=== PATIENT | female | born 1990 | race American Indian/Alaskan Native ===

== ENCOUNTER 2017-12-31 17:56 | Emergency (ER) | payer SELFPAY ==
[2017-12-31] MEDS ORDERED: NACL 0.9% 1000 ML 1,000 ML IV ONE (18:08)
[2017-12-31 18:56] LABS: Hemoglobin 13.9 gm/dl (10.1-14.3); Mean Corpuscular HGB Conc 33 % (30-34); Mean Corpuscular Volume 72 fl (79-97); Platelet Count 186 K/mm3 (140-440); Red Blood Count 5.84 M/mm3 (3.65-5.03); Red Cell Distribution Width 16.7 % (13.2-15.2)
[2017-12-31 18:59] LABS: Mean Corpuscular Hemoglobin 24 pg (28-32)
[2017-12-31 19:15] LABS: Alanine Aminotransferase 25 units/L (7-56); Albumin 3.9 g/dL (3.9-5); BUN/Creatinine Ratio 9; Blood Urea Nitrogen 9 mg/dL (7-17); Calcium 9.5 mg/dL (8.4-10.2); Hemolysis Index 10; Lipase 31 units/L (13-60)
[2017-12-31 19:41] LABS: Bilirubin,Urine NEG (Negative); Blood,Urine LG (Negative); Color,Urine Yellow (Yellow); Mucus,Urine 1+ /HPF; Urobilinogen,Urine < 2.0 mg/dL (<2.0)
[2017-12-31 19:43] LABS: RBC,Urine > 182.0 /HPF (0.0-6.0)
[2017-12-31 20:03] LABS: Basophils % (Manual) 0 % (0.0-1.8); Eosinophils % (Manual) 0 % (0.0-4.3); Platelet Estimate Consistent w Auto; RBC Morphology Normal; Total Cells Counted 100
[2018-01-01 00:40] VITALS: BP 166/97
[2018-01-01] MEDS ORDERED: NORCO 5/325 PO ONE (02:51)
[2018-01-01] MEDS ORDERED: ZOFRAN ODT PO ONE (02:51)
[2018-01-01] MEDS ORDERED: K-DUR PO ONE ×2 (02:52→05:12)
[2018-01-01] MEDS ORDERED: PEPCID PO ONE (02:52)
--- NOTE | 2018-01-01 03:40 | Emergency Department Report ---
ED Abdominal Pain HPI - General Chief Complaint: Abdominal Pain Stated Complaint: VOMITING/ABD PAIN Time Seen by Provider: 01/01/18 02:21 Source: patient Mode of arrival: Ambulatory Limitations: No Limitations - History of Present Illness Initial Comments: 27-year-old female with a past medical history asthma, hypertension and obesity presents to the hospital complaining of upper abdominal pain since yesterday with nausea, vomiting, and diarrhea. Nausea vomiting is more pronounced in the diarrhea. Vomitus was initially yellow but now it is green. Patient complains of vaginal bleeding one off for the last year but denies dysuria or difficulty urinating. He describes aching, constant, worse with palpation. She denies hematemesis, hematochezia, melena, or fever. Patient has had 2 similar episodes in the past. In November she was diagnosed with H. pylori at [facility] and completed to 3 weeks treatment. Severity scale (0 -10): 8 - Related Data Allergies Allergy/AdvReac Type Severity Reaction Status Date / Time No Known Allergies Allergy Unverified 12/31/17 18:04 ED Review of Systems ROS: Stated complaint: VOMITING/ABD PAIN Other details as noted in HPI Comment: All other systems reviewed and negative ED Past Medical Hx - Past Medical History Previous Medical History?: Yes Hx Hypertension: Yes Hx Asthma: Yes - Surgical History Past Surgical History?: Yes Additional Surgical History: tonsillectomy - Social History Smoking Status: Never Smoker Substance Use Type: None ED Physical Exam - General Limitations: No Limitations - Other Other exam information: General: No limitations, patient is alert in no acute distress Head exam: Atraumatic, normocephalic Eyes exam: Normal appearance, nonicteric sclera ENT: Moist mucous membrane, normal oropharynx Neck exam: Normal inspection, full range of motion, no meningismus nontender Respiratory exam: Clear to auscultation bilateral, no wheezes, rales, crackles Cardiovascular: Normal rate and rhythm, normal heart sounds Abdomen: Soft, nondistended, right upper quadrant and epigastric tenderness, with normal bowel sounds, no rebound, or guarding Extremity: Full range of motion normal inspection no deformity, no calf tenderness or edema Back: Normal Inspection, full range of motion, no tenderness Neurologic: Alert, oriented x3, cranial nerves intact, no motor or sensory deficit Psychiatric: normal affect, normal mood Skin: Warm, dry, intact ED Course Vital Signs 12/31/17 01/01/18 18:04 00:38 Temperature 98.7 F 99.4 F Pulse Rate 87 68 Respiratory 17 18 Rate Blood Pressure 165/101 166/97 O2 Sat by Pulse 96 100 Oximetry ED Medical Decision Making - Lab Data Result diagrams: 12/31/17 18:28 12/31/17 18:28 Lab Results 12/31/17 12/31/17 12/31/17 Range/Units 18:28 18:28 18:28 WBC 10.0 (4.5-11.0) K/mm3 RBC 5.84 H (3.65-5.03) M/mm3 Hgb 13.9 (10.1-14.3) gm/dl Hct 42.0 (30.3-42.9) % MCV 72 L (79-97) fl MCH 24 L (28-32) pg MCHC 33 (30-34) % RDW 16.7 H (13.2-15.2) % Plt Count 186 (140-440) K/mm3 Baso % (Auto) Aircraft Servicer Add Manual Diff Complete Total Counted 100 Seg Neuts % (Manual) 74.0 H (40.0-70.0) % Band Neutrophils % 0 % Lymphocytes % (Manual) 20.0 (13.4-35.0) % Reactive Lymphs % (Man) 0 % Monocytes % (Manual) 6.0 (0.0-7.3) % Eosinophils % (Manual) 0 (0.0-4.3) % Basophils % (Manual) 0 (0.0-1.8) % Metamyelocytes % 0 % Myelocytes % 0 % Promyelocytes % 0 % Blast Cells % 0 % Nucleated RBC % Not Reportable Seg Neutrophils # Man 7.4 (1.8-7.7) K/mm3 Band Neutrophils # 0.0 K/mm3 Lymphocytes # (Manual) 2.0 (1.2-5.4) K/mm3 Abs React Lymphs (Man) 0.0 K/mm3 Monocytes # (Manual) 0.6 (0.0-0.8) K/mm3 Eosinophils # (Manual) 0.0 (0.0-0.4) K/mm3 Basophils # (Manual) 0.0 (0.0-0.1) K/mm3 Metamyelocytes # 0.0 K/mm3 Myelocytes # 0.0 K/mm3 Promyelocytes # 0.0 K/mm3 Blast Cells # 0.0 K/mm3 WBC Morphology Not Reportable Hypersegmented Neuts Not Reportable Hyposegmented Neuts Not Reportable Hypogranular Neuts Not Reportable Smudge Cells Not Reportable Toxic Granulation Not Reportable Toxic Vacuolation Not Reportable Dohle Bodies Not Reportable Pelger-Huet Anomaly Not Reportable Misty Rods Not Reportable Platelet Estimate Consistent w auto Clumped Platelets Not Reportable Plt Clumps, EDTA Not Reportable Large Platelets Not Reportable Giant Platelets Not Reportable Platelet Satelliting Not Reportable Plt Morphology Comment Not Reportable RBC Morphology Normal Dimorphic RBCs Not Reportable Polychromasia Not Reportable Hypochromasia Not Reportable Poikilocytosis Not Reportable Anisocytosis Not Reportable Microcytosis Not Reportable Macrocytosis Not Reportable Spherocytes Not Reportable Pappenheimer Bodies Not Reportable Sickle Cells Not Reportable Target Cells Not Reportable Tear Drop Cells Not Reportable Ovalocytes Not Reportable Helmet Cells Not Reportable [place] Bodies Not Reportable [place] Rings Not Reportable [place] Cells Not Reportable Bite Cells Not Reportable Crenated Cell Not Reportable Elliptocytes Not Reportable Acanthocytes (Spur) Not Reportable Rouleaux Not Reportable Hemoglobin C Crystals Not Reportable Schistocytes Not Reportable Malaria parasites Not Reportable Jose Bodies Not Reportable Hem Pathologist Commnt No Sodium 135 L (137-145) mmol/L Potassium 3.4 L (3.6-5.0) mmol/L Chloride 97.3 L (98-107) mmol/L Carbon Dioxide 25 (22-30) mmol/L Anion Gap 16 mmol/L BUN 9 (7-17) mg/dL Creatinine 1.0 (0.7-1.2) mg/dL Estimated GFR > 60 ml/min BUN/Creatinine Ratio 9 % Glucose 110 H (65-100) mg/dL Calcium 9.5 (8.4-10.2) mg/dL Total Bilirubin 0.50 (0.1-1.2) mg/dL AST 25 (5-40) units/L ALT 25 (7-56) units/L Alkaline Phosphatase 48 (35-129) units/L Total Protein 7.1 (6.3-8.2) g/dL Albumin 3.9 (3.9-5) g/dL Albumin/Globulin Ratio 1.2 % Lipase 31 (13-60) units/L HCG, Qual Negative (Negative) Urine Color (Yellow) Urine Turbidity (Clear) Urine pH (5.0-7.0) Ur Specific [place] (1.003-1.030) Urine Protein (Negative) mg/dL Urine Glucose (UA) (Negative) mg/dL Urine Ketones (Negative) mg/dL Urine Blood (Negative) Urine Nitrite (Negative) Urine Bilirubin (Negative) Urine Urobilinogen (<2.0) mg/dL Ur Leukocyte Esterase (Negative) Urine WBC (Auto) (0.0-6.0) /HPF Urine RBC (Auto) (0.0-6.0) /HPF U Epithel Cells (Auto) (0-13.0) /HPF Urine Mucus /HPF 12/31/17 Range/Units Unknown WBC (4.5-11.0) K/mm3 RBC (3.65-5.03) M/mm3 Hgb (10.1-14.3) gm/dl Hct (30.3-42.9) % MCV (79-97) fl MCH (28-32) pg MCHC (30-34) % RDW (13.2-15.2) % Plt Count (140-440) K/mm3 Baso % (Auto) Add Manual Diff Total Counted Seg Neuts % (Manual) (40.0-70.0) % Band Neutrophils % % Lymphocytes % (Manual) (13.4-35.0) % Reactive Lymphs % (Man) % Monocytes % (Manual) (0.0-7.3) % Eosinophils % (Manual) (0.0-4.3) % Basophils % (Manual) (0.0-1.8) % Metamyelocytes % % Myelocytes % % Promyelocytes % % Blast Cells % % Nucleated RBC % Seg Neutrophils # Man (1.8-7.7) K/mm3 Band Neutrophils # K/mm3 Lymphocytes # (Manual) (1.2-5.4) K/mm3 Abs React Lymphs (Man) K/mm3 Monocytes # (Manual) (0.0-0.8) K/mm3 Eosinophils # (Manual) (0.0-0.4) K/mm3 Basophils # (Manual) (0.0-0.1) K/mm3 Metamyelocytes # K/mm3 Myelocytes # K/mm3 Promyelocytes # K/mm3 Blast Cells # K/mm3 WBC Morphology Hypersegmented Neuts Hyposegmented Neuts Hypogranular Neuts Smudge Cells Toxic Granulation Toxic Vacuolation Dohle Bodies Pelger-Huet Anomaly Misty Rods Platelet Estimate Clumped Platelets Plt Clumps, EDTA Large Platelets Giant Platelets Platelet Satelliting Plt Morphology Comment RBC Morphology Dimorphic RBCs Polychromasia Hypochromasia Poikilocytosis Anisocytosis Microcytosis Macrocytosis Spherocytes Pappenheimer Bodies Sickle Cells Target Cells Tear Drop Cells Ovalocytes Helmet Cells Gabriel-[place] Bodies [place] Rings [place] Cells Bite Cells Crenated Cell Elliptocytes Acanthocytes (Spur) Rouleaux Hemoglobin C Crystals Schistocytes Malaria parasites Jose Bodies Hem Pathologist Commnt Sodium (137-145) mmol/L Potassium (3.6-5.0) mmol/L Chloride (98-107) mmol/L Carbon Dioxide (22-30) mmol/L Anion Gap mmol/L BUN (7-17) mg/dL Creatinine (0.7-1.2) mg/dL Estimated GFR ml/min BUN/Creatinine Ratio % Glucose (65-100) mg/dL Calcium (8.4-10.2) mg/dL Total Bilirubin (0.1-1.2) mg/dL AST (5-40) units/L ALT (7-56) units/L Alkaline Phosphatase (35-129) units/L Total Protein (6.3-8.2) g/dL Albumin (3.9-5) g/dL Albumin/Globulin Ratio % Lipase (13-60) units/L HCG, Qual (Negative) Urine Color Yellow (Yellow) Urine Turbidity Hazy (Clear) Urine pH 5.0 (5.0-7.0) Ur Specific [place] 1.027 (1.003-1.030) Urine Protein 30 mg/dl (Negative) mg/dL Urine Glucose (UA) Neg (Negative) mg/dL Urine Ketones Neg (Negative) mg/dL Urine Blood Lg (Negative) Urine Nitrite Neg (Negative) Urine Bilirubin Neg (Negative) Urine Urobilinogen < 2.0 (<2.0) mg/dL Ur Leukocyte Esterase Neg (Negative) Urine WBC (Auto) 4.0 (0.0-6.0) /HPF Urine RBC (Auto) > 182.0 (0.0-6.0) /HPF U Epithel Cells (Auto) 3.0 (0-13.0) /HPF Urine Mucus 1+ /HPF - Medical Decision Making Abdominal pain Ultrasound performed Patient treated with [place], Zofran, and Pepcid Hypokalemia Mild Treated with by mouth potassium Chronic hypertension - Differential Diagnosis PUD, H. pylori, gastritis, biliary colic Critical Care Time: No Critical care attestation.: If time is entered above; I have spent that time in minutes in the direct care of this critically ill patient, excluding procedure time. ED Disposition Condition: Stable Referrals: PRIMARY CARE, [Primary Care Provider] - 3-5 Days
[2018-01-01] MEDS ORDERED: PEPCID ONE (05:11)
[2018-01-01] MEDS ORDERED: NACL 0.9% 1000 ML 1,000 ML ONE (05:11)
[2018-01-01] MEDS ORDERED: ZOFRAN ODT ONE (05:12)
[2018-01-01] MEDS ORDERED: NORCO 5/325 ONE (05:13)
--- NOTE | 2018-01-01 08:34 | Ultrasound Report ---
FINAL REPORT EXAM: US ABDOMEN COMPLETE HISTORY: ruq pain, nv TECHNIQUE: Routine imaging was obtained of the upper abdomen. FINDINGS: The gallbladder is normal size and reveals dependent sludge and stones. There are no secondary signs of acute cholecystitis. The common bile duct is normal caliber 1.6 mm. The liver is suboptimally seen because of bowel gas. The abdominal aorta proximally measures 1.4 cm in diameter which is normal. The kidneys normal size and show no evidence of hydronephrosis. The right kidney measures 10.1 cm pole to pole with the left measuring 11.1 cm from pole to pole. The spleen appears mildly enlarged measuring 13.5 cm from pole to pole. The pancreas is not well seen because of bowel gas. Free fluid is not identified. IMPRESSION: Dependent sludge/stones in the gallbladder. No secondary signs of acute cholecystitis. Suboptimal visualization of the liver because of bowel gas. Normal biliary tree. No evidence of hydronephrosis.
== END 2018-01-01 03:40 | disposition home or self-care (01) ==
LOC: ED 17:56
DX: R10.10 Upper abdominal pain, unspecified (principal); R11.2 Nausea with vomiting, unspecified; R19.7 Diarrhea, unspecified; I10 Essential (primary) hypertension; J45.909 Unspecified asthma, uncomplicated; Z90.89 Acquired absence of other organs
CPT/HCPCS: 36415; 76700; 80053; 81001; 83690; 84703; 85007; 85025; 99284; J7030; Q0162

== ENCOUNTER 2019-05-15 10:02 | Emergency (ER) | payer SELFPAY ==
[2019-05-15 10:13] VITALS: BP 158/103
--- NOTE | 2019-05-15 10:29 | Emergency Department Report ---
Chief Complaint: Medical Clearance Stated Complaint: LIGHTHEADED/DIZZINESS/VOMITING Time Seen by Provider: 05/15/19 10:16 - HPI History of Present Illness: This is a 28-year-old female nontoxic, well nourished in appearance, no acute signs of distress presents to the ED for a test. Patient stated had a positive test 3. Patient stated she needs a work excuse as well as a confirmation of . She otherwise denies any symptoms. She denies any fever, chills, nausea, vomiting, chest pain, short of breath, abdominal pain, pelvic pain, vaginal bleeding, urinary symptoms or any back pains. Patient denies any allergies significant past medical history. - Exam Vital Signs: Vital Signs 05/15/19 10:12 Temperature 97.5 F L Pulse Rate 69 Respiratory 19 Rate Blood Pressure 158/103 O2 Sat by Pulse 100 Oximetry Physical Exam: no pelvic pain. no abdominal pain. no vaginal bleeding. no urinary symptoms. denies any pains or symptoms. MSE screening note: Focused history and physical exam performed. Due to findings the following was ordered: ED Medical Decision Making - Medical Decision Making This is a 28-year-old male that presents with nonmedical emergency. Patient is stable and was examined by me. Patient is asymptomatic and denies any symptoms. I will refer the patient [facility] and OBGYN/PCP. At time of discharge, the patient does not seem toxic or ill in appearance. No acute signs of distress noted. Patient agrees to discharge treatment plan of care. No further questions noted by the patient. ED Disposition for MSE Clinical Impression: Encounter for test Qualifiers: test result: result unknown Qualified Code(s): Z32.00 - Encounter for test, result unknown Disposition: Z-07 MED SCREENING EXAM-LEFT Is pt being admited?: No Does the pt Need Aspirin: No Condition: Stable Additional Instructions: Follow-up with the referrals that you received today during your emergency visit today in 3-5 days or if symptoms worsen and continue return to emergency room as soon as possible. Referrals: PRIMARY CARE, [Referring] - 3-5 Days YUDELKA RAMOS MD [Staff Physician] - 3-5 Days NI NUNEZ MD [Staff Physician] - 3-5 Days [facility] [Provider Group] - 3-5 Days
== END 2019-05-15 11:02 | disposition left against medical advice (07) ==
LOC: ED 10:02
DX: Z32.00 Encounter for pregnancy test, result unknown (principal)
CPT/HCPCS: 99281

== ENCOUNTER 2019-05-15 12:42 | Outpatient (CLI) | payer OTHER | END 2019-05-15 12:43 | disposition home or self-care (01) | LOC: LAB 12:42 | PROVIDERS: ATTEND Internal Medicine | DX: Z32.02 Encounter for pregnancy test, result negative (principal) | CPT/HCPCS: 36415; 84703 ==

== ENCOUNTER 2019-09-22 06:00 | Inpatient (IN) | payer OTHER ==
[2019-09-22] MEDS ORDERED: OXYTOCIN 20 UNIT/1000ML DRIP 20,000 MILLIUNITS/1,000 ML BAG IV ONE (06:17)
[2019-09-22] MEDS ORDERED: OXYTOCIN 10 UNIT/1 ML INJ IM ONE (07:03)
[2019-09-22] MEDS ORDERED: MINERAL OIL 30 ML ORAL LIQD PO PRN (07:30)
[2019-09-22] MEDS ORDERED: TERBUTALINE 1 MG/1 ML INJ SUB-Q PRN (07:30)
[2019-09-22] MEDS ORDERED: LIDOCAINE (2%) 20 MG/1 ML VIAL 20 ML MDV INFILTRATI ONE (07:30)
[2019-09-22] MEDS ORDERED: ePHEDrine SULFATE 50 MG/1 ML INJ IV PRN (07:30)
[2019-09-22] MEDS ORDERED: LACTATED RINGERS 1,000 ML IV SCH (08:00)
[2019-09-22] MEDS ORDERED: OXYTOCIN DRIP 30 UNITS/500 ML BAG IV SCH (08:00)
[2019-09-22] MEDS ORDERED: OXYTOCIN 20 UNIT/1000ML DRIP 20 UNITS/1,000 ML BAG IV SCH ×2 (08:00)
[2019-09-22 08:19] LABS: Hematocrit 34.8 % (30.3-42.9); Hemoglobin 11.6 gm/dl (10.1-14.3); Mean Corpuscular HGB Conc 33 % (30-34); Mean Corpuscular Volume 73 fl (79-97); Platelet Count 154 K/mm3 (140-440); Red Blood Count 4.75 M/mm3 (3.65-5.03); Red Cell Distribution Width 16.7 % (13.2-15.2)
--- NOTE | 2019-09-22 08:51 | History and Physical Report ---
History of Present Illness Date of examination: 09/22/19 Date of admission: 09/22/19 06:21 Chief complaint: contractions History of present illness: Pt is a 29 year old -Sy[place] female primigravida GIRISH 12/30/19 at 25w6d who presents with severe abdominal pain every 5 minutes since 1700 pm 09/21/19. She reports going to sleep and going to work in hopes that the pain would stop but when it did not, she presented to triage. She does note leakge of fluid sinc e 0430 am this morning. Shortly after arrival in triage, the patient delivered a viable male (please see delivery note). She has had two visits at [facility] with comanagement by [facility] since transfer into care at 22 wks complicated by morbid obesity and chronic hypertension on labetalol 100 mg BID. Her GBS status is unknown. Past History Past Medical History: hypertension (Labetalol 100 mg BID ), other (Morbid Obesity ) Past Surgical History: tonsillectomy Family/Genetic History: cancer Social history: no significant social history - Obstetrical History Expected Date of Delivery: 12/30/19 Actual Gestation: 25 Week(s) 6 Day(s) : 1 Medications and Allergies Allergies Allergy/AdvReac Type Severity Reaction Status Date / Time No Known Allergies Allergy Unverified 12/31/17 18:04 Home Medications Medication Instructions Recorded Confirmed Last Taken Type Famotidine [Pepcid] 20 mg PO BID #20 tablet 01/05/18 Unknown Rx HYDROcodone/APAP 5-325 [[place] 1 each PO Q6HR PRN #20 tablet 01/05/18 Unknown Rx 5/325] Ondansetron [Zofran Odt] 4 mg PO Q8HR PRN #20 tab.rapdis 01/05/18 Unknown Rx Active Meds: Active Medications Ephedrine Sulfate (Ephedrine Sulfate) 10 mg IV Q2M PRN PRN Reason: Hypotension Oxytocin/Sodium Chloride (Pitocin/Ns 20 Unit/1000ml Drip) 20 units in 1,000 mls @ 0 mls/hr IV DIRECT SAVANNA Oxytocin/Sodium Chloride (Pitocin/Ns 20 Unit/1000ml Drip) 20 units in 1,000 mls @ 125 mls/hr IV DIRECT SAVANNA Oxytocin/Sodium Chloride (Pitocin/Ns 30 Unit/500ml) 30 units in 500 mls @ 1 mls/hr IV TITR SAVANNA; Protocol Lactated Ringer's (Lactated Ringers) 1,000 mls @ 125 mls/hr IV DIRECT SAVANNA Mineral Oil (Mineral Oil) 30 ml PO QHS PRN PRN Reason: Constipation Terbutaline Sulfate (Brethine) 0.25 mg SUB-Q ONCE PRN PRN Reason: Hyperstimulation/Hypertonicity Review of Systems All systems: negative - Vital Signs Vital signs: Vital Signs Temp Pulse Resp BP 98.8 F 96 H 18 141/71 09/22/19 07:19 09/22/19 07:19 09/22/19 07:19 09/22/19 07:19 Temp Pulse Resp BP Pulse Ox 98.8 F 96 H 18 141/09/22/19 07:19 09/22/19 07:19 09/22/19 07:19 09/22/19 07:19 - Physical Exam Breasts: Positive: deferred Abdomen: Positive: soft (obese ) Extremities: Positive: edema (trace) Results Result Diagrams: 09/22/19 07:55 Abnormal lab results 09/22/19 Range/Units 07:55 WBC 20.0 H (4.5-11.0) K/mm3 MCV 73 L (79-97) fl MCH 24 L (28-32) pg RDW 16.7 H (13.2-15.2) % All other labs normal. Assessment and Plan A: s/p delivery at 25w6d Chronic HTN Morbid Obesity P: Admit to service Closely monitor clinical status Routine care
[2019-09-22] MEDS ORDERED: MAGNESIUM HYDROXIDE (MOM) ORAL LIQD UDC PO PRN (10:03)
[2019-09-22] MEDS ORDERED: PROMETHAZINE 25 MG RECT SUPP PR PRN (10:03)
[2019-09-22] MEDS ORDERED: PROMETHAZINE 25 MG TAB PO PRN (10:03)
[2019-09-22] MEDS ORDERED: WITCH HAZEL/ GLYCERIN PAD TP PRN (10:03)
[2019-09-22] MEDS ORDERED: LANOLIN/ZINC/DIMETHICONE (LANSINOH) 7 GM TP PRN (10:03)
[2019-09-22] MEDS ORDERED: ONDANSETRON 4 MG/2 ML INJ IV PRN (10:03)
[2019-09-22] MEDS ORDERED: diphenhydrAMINE 25 MG CAP PO PRN (10:03)
[2019-09-22] MEDS ORDERED: ACETAMINOPHEN 325 MG TAB PO PRN (10:03)
[2019-09-22] MEDS ORDERED: HYDROcodone/ACETAMINOPHEN 5-325 MG TAB PO PRN (10:03)
[2019-09-22] MEDS: IBUPROFEN 600 MG TAB PO SCH ×3 (10:21→23:51)
[2019-09-22] MEDS: PRENATAL VIT27-FE FUMARATE-FOLIC ACID VIT TAB PO SCH (10:22)
--- NOTE | 2019-09-22 17:30 | Procedure Note ---
OB Delivery Note - Delivery Date of Delivery: 09/22/19 Surgeon: POLY NICOLAS Channel Opener Outsoles: LISA FLANNERY Estimated blood loss: 300cc - Vaginal Delivery presentation: vertex Delivery position: OA Intrapartum events: labor-<37 weeks, precipitous labor- <3hr Delivery induction: none Delivery monitor: external FHT, external uterine Route of delivery: Delivery placenta: spontaneous Delivery cord: 3 umbilical vessels Episiotomy: none Delivery laceration: none Anesthesia: none Delivery comments: Late entry. While patient being evaluated in triage, pt precipitously delivered a viable male via spontaneous vaginal delivery over intact perineum under no anesthesia while triage nurse present. Cord clamped and cut. handed to NICU staff in attendance. Lisa Flannery CNM then delivered the placenta spontaneously. Vagina and perineum explored. No lacerations noted. Pt received 0.2 mg of Methergine IM. EBL 300 mL. - Infant A at 1 minute: 8 at 5 minutes: 8 Gender: Male (1030g @ 0607 am)
[2019-09-22 20:55] LABS: Hematocrit 31.7 % (30.3-42.9); Hemoglobin 10.5 gm/dl (10.1-14.3)
[2019-09-23] MEDS: IBUPROFEN 600 MG TAB PO SCH (05:45)
--- NOTE | 2019-09-23 07:59 | Progress Note ---
Assessment and Plan - Patient Problems (1) delivery Current Visit: Yes Status: Acute Plan to address problem: Patient doing well clinically discharge home tomorrow (2) Morbid obesity Current Visit: Yes Status: Acute Subjective - Subjective Date of service: 09/23/19 Interval history: The patient is day 1 status post a delivery at 25-week . She denies any significant complaints. She is currently normotensive. Patient reports: appetite normal, voiding normally, pain well controlled Lane: in NICU Objective - Vital Signs Latest vital signs: Vital Signs Temp Pulse Resp BP BP Pulse Ox 09/23/19 00:32 98.2 F 87 20 116/63 98 09/22/19 16:25 97.4 F L 89 18 122/76 99 09/22/19 13:16 97.9 F 96 H 18 94/43 98 09/22/19 09:05 98.6 F 93 H 19 129/66 97 Intake and Output 09/22/19 09/23/19 09/23/19 22:59 06:59 14:59 Intake Total 240 480 Output Total 300 Balance -60 480 Intake: Oral 240 480 Output: Urine 300 Void 300 Other: Total, Intake Amount 240 240 Total, Output Amount 300 # Voids Void 1 1 - Labs Labs: Abnormal lab results 09/22/19 Range/Units 07:55 WBC 20.0 H (4.5-11.0) K/mm3 MCV 73 L (79-97) fl MCH 24 L (28-32) pg RDW 16.7 H (13.2-15.2) %
--- NOTE | 2019-09-23 08:01 | Discharge Summary ---
Providers - Providers Date of Admission: 09/22/19 06:21 Date of discharge: 09/24/19 Attending physician: CASEY PATTERSON Primary care physician: CASEY PATTERSON Hospitalization Reason for admission: labor Delivery: Discharge diagnosis: delivery baby: male Hospital course: Patient admitted in labor. She subsequently had a spontaneous vaginal delivery of a 25-week male infant. Her course was uneventful. Condition at discharge: Good Disposition: DC-01 TO HOME OR SELFCARE - Discharge Diagnoses (1) delivery Status: Acute (2) Morbid obesity Status: Acute Plan - Discharge Medications Prescriptions: Ibuprofen [Motrin] 800 mg PO Q8HR PRN #60 tablet PRN Reason: Pain, Mild (1-3) HYDROcodone/APAP 5-325 [[place] 5/325] 1 each PO Q6HR PRN #20 tablet PRN Reason: Pain - Provider Discharge Summary Activity: no sex for 6 weeks, no heavy lifting 4 weeks, no strenuous exercise Diet: routine Instructions: routine Additional instructions: [] Smoking cessation referral if applicable(refer to patient education folder for contact #) [] Refer to [facility] Booklet Call your doctor immediately for: * Fever > 100.5 * Heavy vaginal bleeding ( >1 pad per hour) * Severe persistent headache * Shortness of breath * Reddened, hot, painful area to leg or breast * Schedule visit in 4 weeks - Follow up plan
[2019-09-24] MEDS: IBUPROFEN 600 MG TAB PO SCH ×3 (00:22→10:04)
[2019-09-24] MEDS: PRENATAL VIT27-FE FUMARATE-FOLIC ACID VIT TAB PO SCH (09:51)
[2019-09-24 10:26] VITALS: BP 138/84
[2019-09-24] MEDS ORDERED: MEASLES, MUMPS & RUBELLA 12,500 UNIT/0.5 ML VACCINE SUB-Q ONE (12:00)
== END 2019-09-24 13:00 | disposition home or self-care (01) | DRG 806 ==
LOC: TRG 06:00 → APU 06:03 → LD 06:21 → TRG 06:21 → OB 09:57
PROVIDERS: ADMIT Obstetrics & Gynecology; ATTEND Obstetrics & Gynecology
PROC: 10E0XZZ Delivery of Products of Conception, External Approach (ICD-10-PCS; principal; 2019-09-22)
PROC: 3E0234Z Introduction of Serum, Toxoid and Vaccine into Muscle, Percutaneous Approach (ICD-10-PCS; 2019-09-24)
DX: O60.12X0 Preterm labor second trimester with preterm delivery second trimester, not applicable or unspecified (principal); O10.92 Unspecified pre-existing hypertension complicating childbirth; Z37.0 Single live birth; E66.01 Morbid (severe) obesity due to excess calories; O99.214 Obesity complicating childbirth; O62.3 Precipitate labor; Z3A.25 25 weeks gestation of pregnancy; Z23 Encounter for immunization; Z90.89 Acquired absence of other organs; Z80.8 Family history of malignant neoplasm of other organs or systems
CPT/HCPCS: 36415; 85014; 85018; 85027; 86592; 86706; 86762; 86850; 86900; 86901; 87806; 88305; G0378; J2590